=== PATIENT | male | born 1950 | race Caucasian/White ===

== ENCOUNTER → 2017-12-03 | Outpatient (CLI) | payer MEDICARE, OTHER ==
[~2017-12-03] MED LIST: COLACE100 MG PO; ELIQUIS5 MG PO; GABAPENTIN100 MG PO; LISINOPRIL10 MG PO; OXYCODONE PO; PACERONE 200 M200 M1 PO; SPIRONOLACTONE25 M1 PO; TRAMADOL 50 MG50 MG PO; ZESTRIL5 MG PO; ZOCOR 20 MG TAB20 M1 PO; carvedilol PO
--- NOTE | 2017-12-11 14:16 | PAINCON ---
[address] [address] PAIN MANAGEMENT CONSULTATION Name: CANDELARIAJABIERMALISSA De Santiago Room: [facility] MOE Collazo#: [id number] Admission: 12/03/17 Attend Phys: Chance Noel MD Discharge: Date of : 46 Report #: [id number] THIS REPORT FOR: //name// CC: Pj Noel DATE OF SERVICE: 12/03/2017 CHIEF COMPLAINT: Sharp, stabbing, shooting pain while walking and bending. HISTORY OF PRESENT ILLNESS: The patient is a 67-year-old gentleman who has been referred to the Pain Clinic because of pain and discomfort. He states that he is experiencing pain and discomfort involving his right hip and upper leg. Pain radiates down to the right side, to the level of his knee. He states that the pain feels like it is a nerve pain. He was injured back in 2000. He was run over by a [employer] machine. It crushed a portion of his pelvis. He has been treated in the past with a spinal cord stimulator in 2010. He rates his pain as a 4/10 at this juncture. He has had hip series of epidural steroid injections prior to the placement of the spinal cord stimulator. He feels that the spinal cord stimulator is still helpful. The patient states that he received a steroid injection in his right hip. Pain continues to be problematic. He did have a Medrol Dosepak in 11/2017, on approximately 11/13/2017. He states that at the time of trauma, he had reconstruction of his pelvis. He has had total left hip replacement since that time in 2004. ALLERGIES: CONTRAST DYE. CURRENT MEDICATIONS: Amiodarone 200 mg every other day, Eliquis 5 mg b.i.d., carvedilol 2.5 mg b.i.d., lisinopril 5 mg, simvastatin 20 mg, spironolactone 25 mg. PAST MEDICAL HISTORY: Hypertension, hyperlipidemia, polyosteoarthritis, history of atrial fibrillation, coronary artery disease, left leg pain, right hip pain. PAST SURGICAL HISTORY: Pelvic reconstruction in 2010, total hip replacement in 2004, right SI joint in 2002, spinal implant in 2010. SOCIAL HISTORY: He is retired. He is disabled. REVIEW OF SYSTEMS: Generally good health, fatigue and weakness, heart trouble, joint pain, joint stiffness, back pain, difficulty walking. LABORATORY DATA: No new laboratory values available at the time of our interview. PAIN CLINIC ASSESSMENT TOOL: [place] [address] PAIN MANAGEMENT CONSULTATION Name: GABY CANDELARIA Room: [facility]#: [id number] Admission: 12/03/17 Attend Phys: Chance Noel MD Discharge: Date of : 46 Report #: [id number] 1. History of osteoarthritis: The patient has arthritic changes in his hip and polyosteoarthritis in other joints. 2. Height 5 feet 6 inches, weight 183 pounds, BMI is 29. 3. Vital signs: Blood pressure 145/90, heart rate 56, respiratory rate 16, room air saturation 95%, temperature 97.9. 4. Pain score: 4/10. 5. Fall risk: The patient has not fallen in the last 3 months. 6. Blood thinner: The patient has been using Eliquis. 7. History of hypertension: The patient is being treated for hypertension. 8. Opioid treatment for greater than 6 weeks: The patient is not on an opioid therapy. 9. Risk assessment tool. 10. Functional assessment tool. 11. Recreational drug use: The patient denies use of recreational drugs. 12. Tobacco: The patient denies use of tobacco. 13. Alcohol: The patient denies use of alcoholic beverages. PHYSICAL EXAMINATION: GENERAL: The patient is a well-developed, well-nourished white male. He appears his stated age. He is alert and oriented x 3. Affect is appropriate. Speech is fluent. HEENT: Normocephalic, atraumatic. Extraocular eye muscles intact. Sclerae nonicteric. Hearing is within normal limits. NECK: Without adenopathy. Good range of motion. CHEST: Clear to auscultation, without rhonchi or rales. HEART: Regular rate. ABDOMEN: Nontender. EXTREMITIES: Upper extremity muscle strength is judged to be 5/5 for the major muscle groups, without sensory changes. MUSCULOSKELETAL: Without significant kyphosis, scoliosis, or lordosis. Lower extremity muscle strength is judged to be generally 5/5 on the left. He complains of some stabbing and discomfort in the right lateral thigh area. He has had some discomfort in the groin area as well as in the testicular area. The patient is able to notice worsening of pain when he leans to the left side, less pain to the right side. Left and right lateral rotation were not very problematic. Forward bending was possible. IMPRESSION: 1. Pain involving the left leg as well as right hip pain. 2. History of atrial fibrillation. 3. Essential hypertension. 4. Hyperlipidemia. RECOMMENDATION: The patient states that he is on Eliquis. Possibility of injection in the low back area to help curtail the pain and discomfort involving the right and left legs was discussed. The patient will discontinue Eliquis. [address] [place] [address] PAIN MANAGEMENT CONSULTATION Name: GABY CANDELARIA Room: [facility]#: [id number] Admission: 12/03/17 Attend Phys: Chance Noel MD Discharge: Date of : 46 Report #: [id number] He will then return to the Pain Clinic at which time we will evaluate him for possibility of an epidural injection or injections to the affected areas. The patient feels that the pain is radiating down into his leg and feels like it might be nerve pain, so we will consider the possibility of an epidural steroid injection. We would like to thank you for letting us participate in his care. We hope he continues to improve. Again, he will call us if he has any concerns. <ELECTRONICALLY SIGNED> By: Chance Noel MD 12/11/17 1416 [id number]. Marquez Noel MD /nt
== END ==
LOC: M.PC 04:45
DX: M25.551 Pain in right hip (principal); M79.605 Pain in left leg; I10 Essential (primary) hypertension; E78.5 Hyperlipidemia, unspecified; I48.91 Unspecified atrial fibrillation; I25.10 Atherosclerotic heart disease of native coronary artery without angina pectoris

== ENCOUNTER → 2017-12-10 | Outpatient (CLI) | payer MEDICARE, OTHER ==
--- NOTE | 2017-12-27 08:37 | PAINCON ---
[address] [address] PAIN MANAGEMENT CONSULTATION Name: BARIGABY Jonnathan [id number] Admission: 12/10/17 Attend Phys: Chance Noel MD Discharge: Date of : 46 Report #: [id number] THIS REPORT FOR: //name// CC: Pj Noel DATE OF SERVICE: 12/10/2017 CHIEF COMPLAINT: right hip and leg pain. HISTORY OF PRESENT ILLNESS: The patient is a 67-year-old gentleman who has been seen in the Pain Clinic because of pain and discomfort, which he is experiencing in his right hip and upper leg. Pain radiates down the right side. He states that his pain has been problematic since his back injury in 2000. He was accidentally run over [place] [employer] [place]. It crushed his pelvis. He has been treated with a spinal cord stimulator since 2010. He feels that pain at this juncture continues to radiate down into his hip and is most problematic on the left side today. He has returned to the Pain Clinic for evaluation and treatment. ALLERGIES: CONTRAST DYE. CURRENT MEDICATIONS: Amiodarone 200 mg every other day, Eliquis 5 mg b.i.d., carvedilol 2.5 mg b.i.d., lisinopril 5 mg, simvastatin 20 mg, spironolactone 25 mg. PAIN CLINIC ASSESSMENT: 1. History of osteoarthritis: The patient has arthritic changes in his hip and has polyarthritis in other joints. 2. Height 5 feet 6 inches, weight 185 pounds, BMI is 29.7. 3. Vital signs: Blood pressure 135/76, heart rate 56, respiratory rate 16, room air saturation 94%, temperature 98.4. 4. Pain score: 4/10. 5. Fall risk: The patient has not fallen in the last 3 months. 6. Blood thinner: The patient has discontinued the use of his Eliquis. 7. Hypertension: The patient is being treated for hypertension. 8. Opioid therapy greater than 6 weeks: The patient is not on opioid therapy. 9. Risk assessment tool. 10. Functional assessment tool. 11. Recreational drug use: The patient denies use of recreational drugs. 12. Tobacco: The patient denies use of tobacco. 13. Alcohol: The patient denies use of alcoholic beverages. PHYSICAL EXAMINATION: GENERAL: The patient is a well-developed white male. He appears his stated age. He is alert and oriented x 3. His affect [place] [address] PAIN MANAGEMENT CONSULTATION Name: GABY CANDELARIA Room: [facility]#: [id number] Admission: 12/10/17 Attend Phys: Chance Noel MD Discharge: Date of : 46 Report #: [id number] fluent. HEENT: Normocephalic, atraumatic. Extraocular muscles intact. Sclerae nonicteric. Hearing is within normal limits. NECK: Without adenopathy. Good range of motion. CHEST: Clear to auscultation, without rales or rhonchi. HEART: Regular rate. ABDOMEN: Nontender, without pain. EXTREMITIES: Upper extremity muscle strength is judged to be 5/5 for the major muscle groups in the upper extremities. MUSCULOSKELETAL: Without significant scoliosis, kyphosis, or lordosis. The lower muscle strength is judged to be 5/5 on the left. He has pain and discomfort radiating down to the right lateral portion of his thigh. Walks with a slightly antalgic gait. It appears 1 leg is slightly longer than the other. IMPRESSION: 1. Pain and discomfort involving the left leg as well as the right hip. 2. History of atrial fibrillation. 3. Essential hypertension. 4. Hyperlipidemia. RECOMMENDATIONS: We discussed treatment options with the patient. He is having continued pain involving his right hip. Palpation in the area of the right greater trochanteric area reproduces a significant component of this pain. The patient states that this is the pain that is causing most discomfort at this juncture. We discussed the possible complications of a trochanteric bursa injection. They include but are not limited to infection, worsening of pain, no improvement in pain, bleeding, and the patient elects to proceed. PROCEDURE NOTE: The patient was placed in the left lateral decubitus position. The right hip was identified and was evaluated with fluoroscopy. A 25-gauge needle was then advanced into the area of discomfort. The patient states that this did reproduce his discomfort. A total of 80 mg Depo-Medrol with 10 mL of 0.5% bupivacaine was injected. The patient tolerated the procedure well. There were no complications. He remained in the Pain Clinic for an appropriate amount of time. A total of about 5-second fluoroscopy time was used. His pain decreased to 2/10 at the time of discharge. We would like to thank you for letting us participate in his care. <ELECTRONICALLY SIGNED> By: Chance Noel MD 12/27/17 0837 [id number] [id number]. Marquez Noel MD /nt
== END | disposition home or self-care (01) ==
LOC: M.PC 05:23
DX: M25.551 Pain in right hip (principal); G89.29 Other chronic pain; I48.91 Unspecified atrial fibrillation; I10 Essential (primary) hypertension; E78.5 Hyperlipidemia, unspecified; Z79.01 Long term (current) use of anticoagulants; Z91.041 Radiographic dye allergy status; Z79.899 Other long term (current) drug therapy; Z88.8 Allergy status to other drugs, medicaments and biological substances; Z98.890 Other specified postprocedural states

== ENCOUNTER → 2018-01-16 | Outpatient (CLI) | payer MEDICARE, OTHER ==
--- NOTE | 2018-01-17 17:38 | PAINCON ---
[address] [address] PAIN MANAGEMENT CONSULTATION Name: CANDELARIAGABY Room: [facility] JORDI Vale#: [id number] Admission: 01/16/18 Attend Phys: Chance Noel MD Discharge: Date of : 46 Report #: [id number] THIS REPORT FOR: //name// CC: Pj Rivera DATE OF SERVICE: 01/16/2018 CHIEF COMPLAINT: Pain improved quite a bit after the right hip injection. FOLLOWUP HISTORY: The patient is a 67-year-old gentleman who has been seen in the pain clinic because of chronic pain. He did have some pain in his right hip. It was trochanteric bursitis. He underwent an injection under fluoroscopy at the last visit. Feels that the pain improved by about 100% in that area. He now has some pain and discomfort in the right lower part of his buttocks. Feels that he may have been there during the other pain episodes, but was covered. He is on Eliquis. He has been treated for atrial fibrillation. Feels that over the last few days, he has pop in and out of atrial fibrillation. He was in atrial fibrillation last evening. This morning has returned to sinus rhythm. He has returned with for the possibility of injecting in the right buttocks area where the pain is problematic at this juncture. He rates his pain as an 8/10. He feels that his atrial fibrillation needs to be more stable at this juncture before he stops his Eliquis. He will follow up with his sports medicine masseur. Then after that he will call the pain clinic and schedule an injection. ALLERGIES: IV CONTRAST DYE. MEDICATIONS: Amiodarone 200 mg every other day, Eliquis 5 mg b.i.d., Carvedilol 2.5 mg b.i.d., lisinopril 5 mg, simvastatin 20 mg, and spironolactone 25 mg. PAIN CLINIC ASSESSMENT: 1. History of osteoarthritis. The patient has osteoarthritic changes in his hip and has polyarthritis in other joints. 2. Height 5 feet 6 inches, weight 185 pounds, BMI is 29.8. 3. Vital signs: Blood pressure 123/76, heart rate 62, respiratory rate 16, room air saturation 96%, temperature 98.2. Pain scale 4/10. 4. Fall risk. The patient has not fallen in the last 3 months. 5. Blood thinner. The patient is on a blood thinner, Eliquis. 6. Hypertension. The patient is being treated for hypertension. 7. Opioid therapy greater than 6 weeks. The patient receives medications from the pain clinic. 8. Risk assessment tool. 9. Functional assessment tool. 10. Recreational drug use. The patient denies use of recreational drugs. 11. Tobacco: The [place] [address] PAIN MANAGEMENT CONSULTATION Name: GABY CANDELARIA Jonnathan [id number] Admission: 01/16/18 Attend Phys: Chance Noel MD Discharge: Date of : 46 Report #: [id number] 12. Alcohol: The patient denies use of alcoholic beverages. PHYSICAL EXAMINATION: GENERAL: The patient is a well-developed, well-nourished white male, appears his stated age. He is alert and oriented x 3. His affect is appropriate. Speech is fluent. HEENT: Normocephalic, atraumatic. Extraocular eye muscles intact. NECK: Without adenopathy. Good range of motion. HEART: Regular rate today - the patient states he was in atrial fibrillation and can perceive when he falls into fibrilation. ABDOMEN: Nontender without pain. EXTREMITIES: Upper extremity, muscle straight judged to be 5/5. Lower motor strength is judged to be 5/5. The patient walks with an antalgic gait. Has pain and discomfort in the right upper buttocks area near the piriformis. Palpation in this area does reproduce pain and discomfort. IMPRESSION: 1. Right piriformis muscle irritation. 2. History of atrial fibrillation. 3. Essential hypertension. 4. Hyperlipidemia. RECOMMENDATIONS: We discussed treatment options with the patient. We will continue with his current medical regimen. He will return to the pain clinic after he is stabilized his atrial fibrillation. The patient will contact his sports medicine masseur. After he has been stabilized and is able to stop his Eliquis. He will then return to the pain clinic for an injection in the right piriformis area. Risks of this procedure were discussed. The patient will call us in the future, if he has any concerns prior to the injection. We would like to thank you for letting us participate in his care. We hope he continues to improve. <ELECTRONICALLY SIGNED> By: Chance Noel MD 01/17/18 1738 [id number]. Marquez Noel MD /[facility]
== END ==
LOC: M.PC 12-31 12:50
DX: G57.01 Lesion of sciatic nerve, right lower limb (principal); I10 Essential (primary) hypertension; G89.29 Other chronic pain; E78.5 Hyperlipidemia, unspecified; I48.91 Unspecified atrial fibrillation